=== PATIENT | female | born 1960 | race African-American/Black ===

== ENCOUNTER 2018-06-10 17:58 | Emergency (ER) | payer MEDICARE, MEDICAID ==
[~2018-06-10] VITALS: Ht 165.1 cm; Wt 81.6 kg
--- NOTE | 2018-06-10 18:00 | NUR ---
ED Nurse Note: pt brought in by [email or web address] [id number] from home c/o dizziness and chest discomfort, pt states she smoked cocaine and started having sx. pt AA&ox4, gcs=15, skin warm and dry, resp even and unlabored on RA, -n/v/d, sinus tach on air sampling and monitoring, vss, will cont monitor.
[2018-06-10 18:08] VITALS: BP 110/62
[2018-06-10] MEDS ORDERED: LOSARTAN POTASS25 MG ORAL (18:11)
[2018-06-10] MEDS ORDERED: UNOBMED (18:12)
[2018-06-10] MEDS ORDERED: Isovue-370 150ml vial INJ PRN (18:15)
[2018-06-10] MEDS ORDERED: LORazepam Inj 2mg/ml 1ml IV ONE (18:15)
--- NOTE | 2018-06-10 18:32 | Emergency Room Report ---
History of Present Illness General Chief Complaint: Dizziness Source: Patient Present Illness HPI Patient is a 58-year-old female presented after increased arm pain and low back pain after drinking alcohol and using cocaine. Patient stated she used cocaine last night. She reports having some increased palpitations. Patient reports having prior history of hypertension as well as chronic back pain. She reports having some chest discomfort. Allergies: Coded Allergies: No Known Allergies (Unverified , 06/10/18) Patient History Past Medical History: see triage record Reviewed Nursing Documentation: PMH: Agreed; PSxH: Agreed Nursing Documentation-PMH Past Medical History: No History, Except For Hx Hypertension: Yes Review of Systems All Other Systems: negative except mentioned in HPI Physical Exam Vital Signs Date Time Temp Pulse Resp B/P (MAP) Pulse Ox O2 Delivery O2 Flow Rate FiO2 06/10/18 17:52 98.1 111 17 97/65 98 Room Air Sp02 EP Interpretation: reviewed, normal General Appearance: normal inspection, well appearing, no apparent distress, alert, GCS 15 Head: atraumatic ENT: normal ENT inspection, hearing grossly normal, normal voice Neck: normal inspection, full range of motion, supple, no bony tend Respiratory: normal inspection, lungs clear, normal breath sounds, no respiratory distress, no retraction, no wheezing Cardiovascular #1: no edema, tachycardia Gastrointestinal: normal inspection, normal bowel sounds, non tender, soft, no guarding, no hernia Genitourinary: no CVA tenderness Musculoskeletal: normal inspection, back normal, normal range of motion Neurologic: normal inspection, alert, oriented x3, responsive, envelope maker III-XII nml as tested, speech normal Psychiatric: normal inspection, judgement/insight normal, mood/affect normal Skin: normal inspection, normal color, no rash Medical Decision Making Diagnostic Impression: Primary Impression: Polysubstance abuse ER Course Patient presented for palpitations and extremity discomfort. Differential diagnosis include was not limited to myocardial injury, aortic dissection, pneumonia, pancreatitis sepsis among others. Because of complexity of patient' s case laboratory testing and imaging studies were ordered. EKG interpreted by me showed normal sinus rhythm with a rate of [address] or T wave changes. Patient was given Ativan due to recent cocaine use.Patient was given IV fluid. Patient was given oral potassium due to hypokalemia. CT of chest read by radiology showed round left upper lung nodule 2.5 cm with no evident dissection.Patient's initial troponin was noted to be negative. Labs Test 06/10/18 18:45 White Blood Count 9.4 K/UL (4.8-10.8) Red Blood Count 4.28 M/UL (4.20-5.40) Hemoglobin 14.0 G/DL (12.0-16.0) Hematocrit 40.6 % (37.0-47.0) Mean Corpuscular Volume 95 FL (80-99) Mean Corpuscular Hemoglobin 32.7 PG (27.0-31.0) Mean Corpuscular Hemoglobin Concent 34.5 G/DL (32.0-36.0) Red Cell Distribution Width 13.0 % (11.6-14.8) Platelet Count 344 K/UL (150-450) Mean Platelet Volume 5.4 FL (6.5-10.1) Neutrophils (%) (Auto) 38.3 % (45.0-75.0) Lymphocytes (%) (Auto) 52.9 % (20.0-45.0) Monocytes (%) (Auto) 5.6 % (1.0-10.0) Eosinophils (%) (Auto) 1.1 % (0.0-3.0) Basophils (%) (Auto) 2.1 % (0.0-2.0) Sodium Level 137 MMOL/L (136-145) Potassium Level 3.0 MMOL/L (3.5-5.1) Chloride Level 97 MMOL/L (98-107) Carbon Dioxide Level 29 MMOL/L (21-32) Anion Gap 11 mmol/L (5-15) Blood Urea Nitrogen 21 mg/dL (7-18) Creatinine 1.2 MG/DL (0.55-1.30) Estimat Glomerular Filtration Rate 46.4 mL/min (>60) Glucose Level 92 MG/DL (74-106) Calcium Level 10.5 MG/DL (8.5-10.1) Total Bilirubin 0.4 MG/DL (0.2-1.0) Aspartate Amino Transf (AST/SGOT) 26 U/L (15-37) Alanine Aminotransferase (ALT/SGPT) 23 U/L (12-78) Alkaline Phosphatase 90 U/L (46-116) Total Creatine Kinase 478 U/L (26-308) Creatine Kinase MB 6.0 NG/ML (0.0-3.6) Creatine Kinase MB Relative Index 1.2 Troponin I 0.000 ng/mL (0.000-0.056) Pro-B-Type Natriuretic Peptide 188 pg/mL (0-125) Total Protein 8.5 G/DL (6.4-8.2) Albumin 4.0 G/DL (3.4-5.0) Globulin 4.5 g/dL Albumin/Globulin Ratio 0.9 (1.0-2.7) Lipase 232 U/L (73-393) Urine Opiates Screen Negative (NEGATIVE) Urine Barbiturates Screen Negative (NEGATIVE) Phencyclidine (PCP) Screen Negative (NEGATIVE) Urine Amphetamines Screen Negative (NEGATIVE) Urine Benzodiazepines Screen Negative (NEGATIVE) Urine Cocaine Screen Positive (NEGATIVE) Urine Marijuana (THC) Screen Negative (NEGATIVE) EKG Diagnostic Results Rate: normal - 100 Rhythm: NSR ST Segments: no acute changes Last Vital Signs Date Time Temp Pulse Resp B/P (MAP) Pulse Ox O2 Delivery O2 Flow Rate FiO2 06/10/18 18:08 97.4 109 18 110/62 100 Room Air Status: improved Disposition: HOME, SELF-CARE Condition: Stable Calixto Mccrary MD Jun 10, 2018 18:32
--- NOTE | 2018-06-10 19:07 | NUR ---
ED Nurse Note: report given to HAO ESCOBAR and endorsed care, pt vss, airway intact, resp even and unlabored on RA, sinus tach on potline monitor.
[2018-06-10 19:18] LABS: BASOPHILS % (AUTO) 2.1 % (0.0-2.0); EOSINOPHILS % (AUTO) 1.1 % (0.0-3.0); HEMATOCRIT 40.6 % (37.0-47.0); LYMPHOCYTES % (AUTO) 52.9 % (20.0-45.0); MEAN CORPUSCULAR VOLUME 95 FL (80-99); MONOCYTES % (AUTO) 5.6 % (1.0-10.0); NEUTROPHILS % (AUTO) 38.3 % (45.0-75.0); PLATELET COUNT 344 K/UL (150-450); RED BLOOD COUNT 4.28 M/UL (4.20-5.40); WHITE BLOOD COUNT 9.4 K/UL (4.8-10.8)
[2018-06-10 19:34] LABS: ANION GAP 11 mmol/L (5-15); BLOOD UREA NITROGEN 21 mg/dL (7-18); CALCIUM 10.5 MG/DL (8.5-10.1); CARBON DIOXIDE 29 MMOL/L (21-32); CHLORIDE 97 MMOL/L (98-107); CREATININE 1.2 MG/DL (0.55-1.30); SODIUM 137 MMOL/L (136-145)
[2018-06-10 19:48] LABS: ALANINE AMINOTRANSFERASE 23 U/L (12-78); ALBUMIN/GLOBULIN RATIO 0.9 (1.0-2.7); ALKALINE PHOSPHATASE 90 U/L (46-116); ASPARTATE AMINO TRANSFERASE 26 U/L (15-37); BILIRUBIN,TOTAL 0.4 MG/DL (0.2-1.0); CREATINE KINASE 478 U/L (26-308)
--- NOTE | 2018-06-10 20:00 | NUR ---
ED Nurse Note: pt down to CT
--- NOTE | 2018-06-10 20:34 | NUR ---
ED Nurse Note: Pt back from CT
--- NOTE | 2018-06-10 23:26 | NUR ---
ED Nurse Note: Imaging at bedside
[2018-06-10 23:50] VITALS: BP 117/67
--- NOTE | 2018-06-10 23:50 | NUR ---
ED Nurse Note: Patient cleared cleared for discharge per ERMD. AO4. NAD. VSS. Patient given prescriptions and discharge instructions; verbalized understanding. IV and ID removed. Patient ambulated steady out of ED with all belongings.
--- NOTE | 2018-06-11 10:40 | Diagnostic Imaging Report ---
ndication: Chest pain Technique: IV administration nonionic contrast. Spiral acquisitions obtained from the lung bases to the lung apices. Multiplanar and 3-D reconstructions were generated. Total dose length product 512.55 mGycm. CTDIvol(s) 20.42 mGy. Dose reduction achieved using automated exposure control Comparison: none Findings: There is some image degradation due to respiratory motion artifact The pulmonary arteries are well opacified. No intraluminal filling defects or other findings to suggest acute pulmonary embolus demonstrated. No definite pulmonary arterial dilatation demonstrated. No right ventricular dilatation. No evidence of thoracic aortic aneurysm or dissection. The heart is not enlarged, but does demonstrate left ventricular hypertrophy. There is a 2.6 cm mass in the left upper lobe. This demonstrates central fluid attenuation This demonstrates a peripheral thin rim of lucency which probably does represent compressed surrounding bronchi, although the possibility of cavitary lesion with a central mass is also possible. There is hyperinflation and small early bullous changes in the bilateral upper lobes. There is some peripheral honeycombing, as well as more nonspecific appearing peripheral opacities bilaterally. Ill-defined interstitial and airspace opacities are seen in both lower lobes as well. No effusions. No pericardial effusion. No mediastinal or hilar mass or adenopathy. Esophagus is unremarkable. The included portion of the thyroid is unremarkable. No axillary or chest wall mass or adenopathy. The included abdominal viscera are unremarkable. Impression: Negative for acute pulmonary embolus 2.6 cm fluid attenuation mass with surrounding dilated bronchioles. Given the low central attenuation, most likely an inflammatory or infectious lesion. Necrotic neoplasm also possible but deemed less likely Evidence of COPD Peripheral honeycombing in the upper lobes, consistent with chronic fibrotic changes Nonspecific peripheral reticular and groundglass opacities bilaterally. These could represent areas of acute inflammation versus post inflammatory changes This agrees with the preliminary interpretation provided overnight by [facility] teleradiology service. The CT scanner at [facility] is accredited by the [employer] and the scans are performed using protocols designed to limit radiation exposure to as low as reasonably achievable to attain images of sufficient resolution adequate for diagnostic evaluation.
--- NOTE | 2018-06-13 01:28 | Cardiology Report ---
APPROVED REPORT EKG Measurement Heart [id number] Normal sinus rhythm Possible Left atrial enlargement Nonspecific ST abnormality Prolonged QT Abnormal ECG
== END 2018-06-10 23:50 | disposition home or self-care (01) ==
LOC: EDBD 17:58 → EMR 18:13
DX: F14.10 Cocaine abuse, uncomplicated (principal); I10 Essential (primary) hypertension; M54.5 Low back pain; R00.2 Palpitations; M79.603 Pain in arm, unspecified; E87.6 Hypokalemia; R91.1 Solitary pulmonary nodule
CPT/HCPCS: 36415; 71045; 71275; 80053; 80307; 82550; 82553; 83690; 83880; 84484; 85025; 93005; 96374; 99284; Q9967; J8499